=== PATIENT | male | born 2000 | race Caucasian/White ===

== ENCOUNTER 2022-12-11 17:07 | Outpatient (CLI) | payer OTHER ==
[2022-12-11 21:00] LABS: INFECTIOUS MONONUCLEOSIS NEGATIVE (Negative)
== END 2022-12-11 23:59 | disposition home or self-care (01) ==
LOC: LAB.N 17:07
PROVIDERS: ATTEND Nurse Practitioner
DX: J02.9 Acute pharyngitis, unspecified (principal)
CPT/HCPCS: 36415; 86308